=== PATIENT | female | born 1945 | race Caucasian/White ===

== ENCOUNTER 2017-08-21 07:18 | Emergency (ER) | payer MEDICARE, BC ==
[2017-08-21 07:29] VITALS: BP 185/86
--- NOTE | 2017-08-21 07:42 | UC ---
Respiratory Complaint HPI - HPI Summary HPI Summary: cough x 2 weeks cough is dry , worse at night, was improving but became worse over the past 4 days no fever, + chills, + wheezing, no sob - History of Current Complaint Chief Complaint: UCRespiratory Stated Complaint: ST/CONGESTION Time Seen by Provider: 08/21/17 07:28 Hx Obtained From: Patient Onset/Duration: Gradual Onset, Lasting Weeks - 2, Still Present Timing: Constant Severity Initially: Moderate Severity Currently: Moderate Pain Intensity: 2 Character: Cough: Nonproductive Aggravating Factors: Exertion, Deep Breaths Alleviating Factors: Nothing Associated Signs And Symptoms: Positive: Chills, Wheezing, URI, Nasal Congestion. Negative: Dyspnea, Fever, Pleuritic Chest Pain, Hemoptysis, Dizziness, Calf Pain, Calf Swelling - Allergies/Home Medications Allergies/Adverse Reactions: Allergies Allergy/AdvReac Type Severity Reaction Status Date / Time Adhesive Tape Allergy Rash Verified 08/21/17 07:29 band aides Allergy Itching Uncoded 08/21/17 07:29 pine needles Allergy Rash And Uncoded 08/21/17 07:29 Itching Home Medications: Home Medications Atorvastatin* [Lipitor*] 20 mg PO QPM 08/21/17 [History Confirmed 08/21/17] Losartan/Hydrochlorothiazide [Losartan-Hctz 100-12.5 mg Tab] 1 each PO DAILY [History Confirmed 08/21/17] Magnesium Oxide [Magnesium] 400 mg PO DAILY 08/21/17 [History Confirmed 08/21/17 ] Omeprazole CAP* [Prilosec CAP* 20 MG] 20 mg PO DAILY 08/21/17 [History Confirmed 08/21/17] Pheniramine/P-Eph/Acetaminophn [Theraflu Flu & Sore Throat] 1 each PO DAILY [History Confirmed 08/21/17] Sitagliptin Phosphate [Januvia] 100 mg PO DAILY 08/21/17 [History Confirmed ] metFORMIN* [Glucophage 1000 MG TAB *] 1,500 mg PO BID 08/21/17 [History Confirmed 08/21/17] metFORMIN* [Glucophage 500 MG TAB *] 500 mg PO DAILY 08/21/17 [History Confirmed 08/21/17] PMH/Surg Hx/FS Hx/Imm Hx Endocrine History: Diabetes Cardiovascular History: Hypertension Cancer History: Breast Cancer - Surgical History Surgical History: Yes Surgery Procedure, Year, and Place: breast cancer x2 with chemo and radiation tx , left axillary nodes, tonsils, tubal ligation. LUMPECTOMY - Family History Known Family History: Positive: Hypertension, Diabetes - Social History Alcohol Use: None Substance Use Type: None Smoking Status (MU): Never Smoked Tobacco - Immunization History Most Recent Tetanus Shot: unknown Review of Systems Constitutional: Chills, Fatigue Skin: Negative Eyes: Negative ENT: Sore Throat, Nasal Discharge Respiratory: Cough Cardiovascular: Negative Is Patient Immunocompromised?: No All Other Systems Reviewed And Are Negative: Yes Physical Exam Triage Information Reviewed: Yes Appearance: Well-Appearing, No Pain Distress, Well-Nourished Vital Signs: Initial Vital Signs Temp 96.7 F 08/21/17 07:25 Pulse 92 08/21/17 07:25 Resp 18 08/21/17 07:25 BP 185/86 08/21/17 07:25 Pulse Ox 100 08/21/17 07:25 Vital Signs Reviewed: Yes Eye Exam: Normal Eyes: Positive: Conjunctiva Clear ENT: Positive: Normal ENT inspection, Hearing grossly normal, Pharynx normal Neck: Positive: Supple, Nontender, No Lymphadenopathy Respiratory: Positive: Chest non-tender, Wheezing Cardiovascular: Positive: RRR, No Murmur, Pulses Normal Skin Exam: Normal UC Diagnostic Evaluation - Laboratory O2 Sat by Pulse Oximetry: 100 Respiratory Course/Dx - Course Course Of Treatment: cont. current bp meds. follow up with your pcp in one week - Differential Dx/Diagnosis Provider Diagnoses: bronchitis. elevated bp Discharge - Discharge Plan Condition: Stable Disposition: HOME Prescriptions: Benzonatate CAP* [Tessalon 100 MG CAP*] 100 mg PO TID PRN #15 cap PRN Reason: Cough DOXYcycline CAP(*) [DOXYcycline 100MG CAP(*)] 100 mg PO BID #20 cap Patient Education Materials: Acute Bronchitis (ED) Referrals: Enio Klein DO [Primary Care Provider] - 7 Days
== END 2017-08-21 07:43 | disposition home or self-care (01) ==
LOC: UCCORT 07:18
DX: J40 Bronchitis, not specified as acute or chronic (principal); I10 Essential (primary) hypertension; E11.9 Type 2 diabetes mellitus without complications; Z79.84 Long term (current) use of oral hypoglycemic drugs; Z85.3 Personal history of malignant neoplasm of breast; Z91.048 Other nonmedicinal substance allergy status
CPT/HCPCS: 99212; G0463

== ENCOUNTER 2017-08-27 08:51 | Emergency (ER) | payer MEDICARE, BC ==
[2017-08-27 09:17] VITALS: BP 136/92
--- NOTE | 2017-08-27 10:01 | RAD ---
INDICATION: Cough. COMPARISON: There are no prior studies available for comparison. TECHNIQUE: Dual-energy PA and lateral views of the chest were obtained. FINDINGS: The heart is within normal limits in size. Mediastinal and hilar contours appear within normal limits. The lungs are clear. No pleural effusion is present. IMPRESSION: NO EVIDENCE FOR ACTIVE CARDIOPULMONARY DISEASE.
--- NOTE | 2017-08-27 10:29 | ED ---
Respiratory - HPI Summary HPI Summary: 72 yr old with complaint of cough, nasal congestion for a little over a week. Denies CP, SOB. She has tightness with spasmodic coughing episodes. She has not had fever. She has been on antibiotics and tessalon perls. - History of Current Complaint Chief Complaint: UCRespiratory Stated Complaint: UPPER RESPIRATORY RECHECK Time Seen by Provider: 08/27/17 09:20 Pain Intensity: 0 - Allergy/Home Medications Allergies/Adverse Reactions: Allergies Allergy/AdvReac Type Severity Reaction Status Date / Time Adhesive Tape Allergy Rash Verified 08/27/17 09:11 band aides Allergy Itching Uncoded 08/27/17 09:11 pine needles Allergy Rash And Uncoded 08/27/17 09:11 Itching Home Medications: Home Medications Cholecalciferol TAB* [Vitamin D TAB*] 400 unit PO DAILY 08/27/17 [History Confirmed 08/27/17] PMH/Surg Hx/FS Hx/Imm Hx Endocrine/Hematology History: Reports: Hx Diabetes Denies: Hx Thyroid Disease Cardiovascular History: Reports: Hx Hypertension Denies: Hx Pacemaker/ICD Respiratory History: Denies: Hx Asthma Musculoskeletal History: Reports: Hx Arthritis, Hx Back Problems Sensory History: Reports: Hx Contacts or Glasses Denies: Hx Hearing Aid Opthamlomology History: Reports: Hx Contacts or Glasses Neurological History: Reports: Other Neuro Impairments/Disorders - PAIN CLINIC PATIENT Psychiatric History: Denies: Hx Panic Disorder - Cancer History Cancer Type, Location and Year: breast cancer, left Hx Chemotherapy: Yes Hx Radiation Therapy: Yes - Surgical History Surgery Procedure, Year, and Place: breast cancer x2 with chemo and radiation tx , left axillary nodes, tonsils, tubal ligation. LUMPECTOMY Hx Anesthesia Reactions: No Infectious Disease History: No Infectious Disease History: Reports: Hx Shingles Denies: Traveled Outside the [place] in Last 30 Days - Family History Known Family History: Positive: Hypertension, Diabetes - Social History Alcohol Use: None Substance Use Type: Reports: None Smoking Status (MU): Never Smoked Tobacco Review of Systems Constitutional: Negative Positive: Cough All Other Systems Reviewed And Are Negative: Yes Physical Exam Triage Information Reviewed: Yes Vital Signs On Initial Exam: Initial Vitals Temp Pulse Resp BP Pulse Ox 97.8 F 93 24 136/92 100 08/27/17 09:11 08/27/17 09:11 08/27/17 09:11 08/27/17 09:11 08/27/17 09:11 Vital Signs Reviewed: Yes Appearance: Positive: Well-Appearing, No Pain Distress Skin: Positive: Warm, Skin Color Reflects Adequate Perfusion Head/Face: Positive: Normal Head/Face Inspection Eyes: Positive: EOMI ENT: Positive: Normal ENT inspection Neck: Positive: Nontender Respiratory/Lung Sounds: Positive: Clear to Auscultation, Breath Sounds Present , Other - she doeshave coughing episodes with sputum. Cardiovascular: Positive: RRR. Negative: Murmur Abdomen Description: Positive: Nontender Bowel Sounds: Positive: Present Musculoskeletal: Positive: Strength/ROM Intact. Negative: Edema Left, Edema Right Neurological: Positive: Sensory/Motor Intact, Alert, Oriented to Person Place, Time, CN Intact II-III Psychiatric: Positive: Normal - [place] Coma Scale Best Eye Response: 4 - Spontaneous Best Motor Response: 6 - Obeys Commands Best Verbal Response: 5 - Oriented Coma Scale Total: 15 Diagnostics - Vital Signs Vital Signs Temp Pulse Resp BP Pulse Ox 08/27/17 09:11 97.8 F 93 24 136/92 100 - Laboratory Lab Statement: Any lab studies that have been ordered have been reviewed, and results considered in the medical decision making process. Disposition - Course Course Of Treatment: 72 yr old female with cough productive of sputum. She is on doxy. Likely a viral etiology to her cough. Xray neg. - Diagnoses Provider Diagnoses: Upper respiratory infection, Hypertension Discharge - Discharge Plan Condition: Good Disposition: HOME Prescriptions: Benzonatate CAP* [Tessalon 100 MG CAP*] 100 mg PO TID PRN #15 cap PRN Reason: Cough Patient Education Materials: Upper Respiratory Infection (ED), Hypertension (ED ) Referrals: Enio Klein DO [Primary Care Provider] - 2 Days
== END 2017-08-27 10:26 | disposition home or self-care (01) ==
LOC: UCCORT 08:51
DX: J06.9 Acute upper respiratory infection, unspecified (principal); I10 Essential (primary) hypertension
CPT/HCPCS: 71046; 99212; G0463